=== PATIENT | female | born 1995 | race Caucasian/White ===

== ENCOUNTER 2016-11-28 20:44 | Inpatient (IN) ==
[2016-11-28] MEDS ORDERED: PITOCIN 30 UNITS/LR 30 UNITS/500 ML IV.SOLN IV SCH (21:36)
[2016-11-28] MEDS ORDERED: PEPCID PO PRN (21:36)
[2016-11-28] MEDS ORDERED: STADOL IV PRN (21:36)
[2016-11-28] MEDS ORDERED: TYLENOL PO PRN (21:36)
[2016-11-28] MEDS ORDERED: ZOFRAN IV PRN (21:36)
[2016-11-28] MEDS ORDERED: PEPCID IV PRN (21:36)
[2016-11-28] MEDS ORDERED: SODIUM CHLORIDE 0.9% INJ SCH (21:45)
[2016-11-28] MEDS: LR 1,000 ML IV SCH (22:12)
[2016-11-28 22:14] LABS: MANUAL DIFF NEEDED? NO
[2016-11-28 22:15] LABS: BASO% 0.2 % (0.0-0.8); EOS# 0.09 X1000 (0.0-0.7); EOS% 0.6 % (0.0-10.0); HEMATOCRIT 31.8 % (37.0-47.0); IMM GRAN# 0.05 X1000 (0.0-0.04); IMM GRAN% 0.3 % (0.0-0.5); LYMPH# 2.85 X1000 (1.2-3.4); LYMPH% 18.1 % (20.5-51.1); MCH 32.3 PG (27-31); MCHC 34.6 g/dL (33-37); MCV 93.3 FL (81-99); MONO# 1.07 X1000 (0.11-0.59); MONO% 6.8 % (1.7-9.3); MPV 12.7 FL (7.4-10.4); PLT 181 X1000 (130-400); RBC 3.41 XMIL (4.2-5.4)
[2016-11-28] MEDS ORDERED: NAROPIN 0.2% INJ ONE (22:25)
[2016-11-28] MEDS ORDERED: FENTANYL-BUPIV-NS 2 MCG-0.1% 200 ML ONE (22:28)
[2016-11-28] MEDS ORDERED: FENTANYL-BUPIV-NS 2 MCG-0.1% 200 ML EPIDURAL PRN (22:32)
[2016-11-29 02:38] LABS: UR AMPHETAMINES QUAL NONE DETECTED (NONE DETECT); UR BARBITUATES QUAL NONE DETECTED (NONE DETECT); UR BENZODIAZEPIN QUAL NONE DETECTED (NONE DETECT); UR CANNABINOIDS QUAL NONE DETECTED (NONE DETECT); UR COCAINE QUAL NONE DETECTED (NONE DETECT); UR MDMA QUAL NONE DETECTED (NONE DETECT); UR METHADONE QUAL NONE DETECTED (NONE DETECT); UR METHAMPHETAMINE QUAL NONE DETECTED (NONE DETECT); UR OPIATES QUAL NONE DETECTED (NONE DETECT); UR OXYCODONE QUAL NONE DETECTED (NONE DETECT); UR PCP QUAL NONE DETECTED (NONE DETECT); UR TCA QUAL NONE DETECTED (NONE DETECT)
[2016-11-29] MEDS: LR 1,000 ML IV SCH (05:07)
[2016-11-29] MEDS ORDERED: MINERAL OIL MISC ONE (05:25)
[2016-11-29] MEDS ORDERED: XYLOCAINE-MPF 1% INJ ONE (05:25)
[2016-11-29] MEDS ORDERED: PERI MEDS (DERMOPLAST/NUPERCAINAL/TUCKS) MISC PRN (06:18)
[2016-11-29] MEDS ORDERED: HYDROXYZINE IM PRN (06:18)
[2016-11-29] MEDS ORDERED: PITOCIN IM PRN (06:18)
[2016-11-29] MEDS ORDERED: XYLOCAINE-MPF 1% INJ PRN (06:18)
[2016-11-29] MEDS ORDERED: PITOCIN 30 UNITS/LR 30 UNITS/500 ML IV.SOLN IV ONE (06:18)
[2016-11-29] MEDS ORDERED: BENADRYL PO PRN (06:18)
[2016-11-29] MEDS ORDERED: HYDROXYZINE PO PRN (06:18)
[2016-11-29] MEDS ORDERED: AMBIEN PO PRN (06:18)
[2016-11-29] MEDS ORDERED: CYTOTEC PO PRN (06:18)
[2016-11-29] MEDS ORDERED: MINERAL OIL PO PRN (06:18)
[2016-11-29] MEDS ORDERED: BENADRYL IV PRN (06:18)
[2016-11-29] MEDS ORDERED: BOOSTRIX VACCINE IM ONE (06:18)
[2016-11-29] MEDS ORDERED: M-M-R II VACCINE SUBQ ONE (06:18)
[2016-11-29] MEDS ORDERED: PITOCIN 20 UNITS/LR 20 UNITS/1,000 ML IV.SOLN IV SCH (06:18)
[2016-11-29] MEDS: PERCOCET-10 PO PRN ×2 (06:30→21:04)
[2016-11-29] MEDS: MOTRIN PO PRN (15:40)
[2016-11-29] MEDS: PERCOCET-5 PO PRN (15:41)
[2016-11-29] MEDS: PERICOLACE PO SCH (21:04)
[2016-11-30] MEDS: PERCOCET-10 PO PRN ×2 (04:51→18:48)
[2016-11-30] MEDS: MOTRIN PO PRN ×2 (04:51→15:36)
[2016-11-30 06:14] LABS: HEMATOCRIT 27.6 % (37.0-47.0); MCH 31.5 PG (27-31); MCHC 32.6 g/dL (33-37); MCV 96.5 FL (81-99); RBC 2.86 XMIL (4.2-5.4)
--- NOTE | 2016-11-30 12:59 | PROGRESS NOTE ---
DATE: 11/30/2016 Vital signs are stable. She is afebrile with temp of 96.4 degrees. She is alert and cooperative. She is resting in the bed. She appears to have bonded well with her baby. PHYSICAL EXAM: Lungs: Clear. Heart: Regular sinus rhythm. Abdomen: Is distended but soft. Uterus is nontender. Hemoglobin and hematocrit of 9/27. She is Rh negative blood type. She was a RhoGAM candidate and just received her RhoGAM dose so we will continue routine care with discharge in the morning. cc: MD Bello Castanon MD
[2016-11-30] MEDS: PERICOLACE PO SCH (20:43)
[2016-12-01] MEDS: PERCOCET-5 PO PRN (03:59)
[2016-12-01] MEDS: MOTRIN PO PRN (03:59)
[2016-12-01 09:03] VITALS: BP 108/56
--- NOTE | 2016-12-02 06:01 | DISCHARGE SUMMARY ---
ADMISSION DATE: 11/28/2016 DISCHARGE DATE: 12/01/2016 ADMISSION DIAGNOSIS: Term induction. DISCHARGE DIAGNOSES: 1. Term induction. 2. Rh negative. CONDITION: Stable. DIET: As tolerated. ACTIVITY: Routine . MEDICATIONS: She is to continue her iron and vitamins. She is to use [id number] nonsteroidals. Prescription for OxyContin 5 mg #14 for any severe pain. She was also given a prescription for stool softener. DISCHARGE INSTRUCTIONS: She is to follow up in 6 weeks to see . HISTORY OF PRESENT ILLNESS AND HOSPITAL COURSE: Ms. Vazquez was without complaints. Please refer to her records and delivery note. Currently, she is day 2, doing well and desires discharge. PHYSICAL EXAMINATION: Vital Signs: Stable. She is afebrile. General: She is alert and cooperative, in no distress. Neck: Supple. Lungs: Clear. Heart: Regular sinus rhythm. Abdomen: Slightly distended. Uterus is firm and nontender. Extremities: No cyanosis, clubbing, or edema in her extremities. LABORATORY DATA: Hemoglobin 9 from yesterday. DISPOSITION: We will discharge with the above instructions. cc: MD Bello Castanon MD
== END 2016-12-01 12:35 | disposition home or self-care (01) ==
LOC: OPLD 20:44 → P.LD 20:45
PROVIDERS: ADMIT Obstetrics & Gynecology; ATTEND Obstetrics & Gynecology